=== PATIENT | female | born 1955 | race Caucasian/White ===

== ENCOUNTER 2022-06-20 12:40 | Inpatient (IN) ==
[2022-06-20] MEDS ORDERED: Cefepime 2 GM in Dextrose 2 GM/50 ML BAG IV ONE (12:52)
[2022-06-20] MEDS ORDERED: metroNIDAZOLE IV 500 MG/100ML 500 MG/100 ML BAG IVPB ONE (12:52)
[2022-06-20] MEDS ORDERED: Lactated Ringers 1000 ml BAG 1,000 ML IV ONE ×2 (12:57)
[2022-06-20] MEDS ORDERED: Vancomycin 1,500 MG in NS 0.9% 250 ml 250 ML IVPB ONE (13:30)
[2022-06-20 13:34] LABS: ABS Basophils 0.1 10^3/ul (0-0.2); ABS Eosinophils 0.1 10^3/ul (0-0.6); ABS Lymphocytes 0.2 10^3/ul (1.0-4.8); ABS Monocytes 0.4 10^3/ul (0-0.8); ABS Neutrophils 16.4 10^3/ul (1.5-7.7); Eosinophil % 0.4 %; Hematocrit 33 % (35-47); Hemoglobin 10.5 g/dL (12.0-16.0); Lymphocyte % 1.1 %; Mean Corpuscular HGB Conc 32 g/dL (31-36); Mean Corpuscular Hemoglobin 28 pg (27-31); Mean Corpuscular Volume 86 fL (80-97); Mean Platelet Volume 8.1 fL (7.4-10.4); Platelet Count 178 10^3/uL (150-450); Red Blood Count 3.83 10^6 /uL (3.70-4.87); Red Cell Distribution Width 16 % (10-15); White Blood Count 17.1 10^3/uL (3.5-10.8)
[2022-06-20 13:36] LABS: Venous Bicarbonate HCO3 20.2 mmol/L (24-28)
[2022-06-20 13:43] LABS: Activated Partial Thrombo Time 30.5 seconds (26.0-38.0); INR 1.58 (0.89-1.11)
[2022-06-20 14:23] LABS: Albumin 2.8 g/dL (3.2-5.2); Albumin/Globulin Ratio 0.9 (1-3); C Reactive Protein 285.82 mg/L (<8.01); Potassium 4.3 mmol/L (3.5-5.0); Total Bilirubin 1.6 mg/dL (0.2-1.0); Total Protein 5.8 g/dL (6.4-8.9); eGFR CKD-EPI 23.3 (>60)
[2022-06-20 14:59] LABS: High Sensitivity Troponin 1 Hr 385 pg/mL (<15)
[2022-06-20] MEDS ORDERED: Metoprolol Tartrate 5 mg VIAL 5 ml VIAL (1 mg/ml) IV ONE ×4 (17:53→21:28)
[2022-06-20] MEDS ORDERED: Dextrose 50% Syringe 50 ml 25 GM/50 ML SYRINGE IV PUSH PRN (17:54)
[2022-06-20] MEDS ORDERED: Metoprolol Tartrate 5 mg VIAL 5 ml VIAL (1 mg/ml) IV PRN (17:56)
[2022-06-20] MEDS ORDERED: Cefepime ADVAN 1 GM in NS 0.9% 50 ML 50 ML IVPB SCH (18:00)
[2022-06-20] MEDS ORDERED: Vancomycin per Pharmacy 1 EA NOTE FOLLOW UP SCH (18:00)
[2022-06-20] MEDS ORDERED: Magnesium Sulfate 2 gm BAG 2 GM/50 ML BAG IVPB ONE (18:13)
[2022-06-20 18:19] LABS: Magnesium 1.4 mg/dL (1.9-2.7)
[2022-06-20] MEDS: Lactated Ringers 1000 ml BAG 1,000 ML IV SCH ×2 (18:30→19:32)
[2022-06-20] MEDS ORDERED: Lactated Ringers 1000 ml BAG 1,000 ML IV SCH (19:00)
[2022-06-20] MEDS ORDERED: Magnesium Sulfate IV 1GM/100ML 1 GM/100 ML BAG IV ONE (19:44)
[2022-06-20] MEDS ORDERED: Cefepime 1 GM in Dextrose 1 GM/50 ML BAG IV SCH (20:00)
[2022-06-20 20:09] LABS: High Sensitivity Troponin 3 Hr 559 pg/mL (<15)
[2022-06-20] MEDS ORDERED: metroNIDAZOLE IV 500 MG/100ML 500 MG/100 ML BAG IVPB SCH (20:30)
[2022-06-20 20:31] LABS: Urine Appearance Cloudy; Urine Bilirubin Negative (Negative); Urine Blood 3+ (Negative); Urine Color Amber; Urine Glucose 2+(150 mg/dL) (Negative); Urine Ketones Negative (Negative); Urine Nitrite Negative (Negative); Urine Protein 2+(100 mg/dL) (Negative); Urine Specific Gravity 1.018 (1.002-1.030); Urine Urobilinogen Negative (Negative)
[2022-06-20 20:41] LABS: Urine Bacteria 1+ (Absent); Urine Red Blood Cell 1+(3-5/hpf) (Absent); Urine Squamous Epithelial Cell Present (Absent); Urine White Blood Cell 1+(6-10/hpf) (Absent)
[2022-06-20] MEDS: Heparin DRIP 25,000 UNITS BAG 25,000 UNITS/500 ML BAG IV SCH (20:50)
[2022-06-20 21:00] LABS: ABS Lymphocytes 0.2 10^3/ul (1.0-4.8); ABS Monocytes 0.5 10^3/ul (0-0.8); ABS Neutrophils 12.8 10^3/ul (1.5-7.7); Eosinophil % 0.2 %; Hematocrit 32 % (35-47); Hemoglobin 10.2 g/dL (12.0-16.0); Lymphocyte % 1.4 %; Mean Corpuscular HGB Conc 32 g/dL (31-36); Mean Corpuscular Hemoglobin 28 pg (27-31); Mean Corpuscular Volume 86 fL (80-97); Mean Platelet Volume 7.8 fL (7.4-10.4); Platelet Count 150 10^3/uL (150-450); Red Blood Count 3.68 10^6 /uL (3.70-4.87); Red Cell Distribution Width 16 % (10-15); White Blood Count 13.6 10^3/uL (3.5-10.8)
[2022-06-20] MEDS ORDERED: Insulin GLARGINE 100 un/ml 10 ml VIAL SUBCUT SCH (21:00)
[2022-06-20] MEDS ORDERED: Heparin 5000 UNITS/ML 1 mL VIAL IV SCH (21:00)
[2022-06-20 21:56] LABS: Osmolality Serum 303 mOsm/kg (275-295)
[2022-06-20 21:56] LABS: eGFR CKD-EPI 26.2 (>60)
[2022-06-20 21:57] LABS: Urine Osmo 479 mOsm/kg (150-1150)
[2022-06-20 22:11] LABS: Urine Potassium Concentration 44.1 mmol/L
[2022-06-20] MEDS ORDERED: Digoxin IV 0.5 MG/2 ML AMP (0.25 MG/ML) IV SLOW PU ONE (22:14)
[2022-06-20 23:01] LABS: Glucose Confirmatory 442 mg/dL (70-100)
[2022-06-21] MEDS: Lactated Ringers 1000 ml BAG 1,000 ML IV SCH ×2 (01:39→13:40)
[2022-06-21] MEDS: Cefepime 1 GM in Dextrose 1 GM/50 ML BAG IV SCH ×2 (05:59→18:05)
[2022-06-21] MEDS: metroNIDAZOLE IV 500 MG/100ML 500 MG/100 ML BAG IVPB SCH ×2 (06:45→18:40)
[2022-06-21 08:14] LABS: Hematocrit 31 % (35-47); Mean Corpuscular HGB Conc 32 g/dL (31-36); Mean Corpuscular Hemoglobin 27 pg (27-31); Mean Corpuscular Volume 85 fL (80-97); Platelet Count 139 10^3/uL (150-450); Red Blood Count 3.64 10^6 /uL (3.70-4.87); Red Cell Distribution Width 15 % (10-15); White Blood Count 13.3 10^3/uL (3.5-10.8)
[2022-06-21 08:51] LABS: Anion Gap 13 mmol/L (2-11); CO2 Carbon Dioxide 16 mmol/L (22-32); Calcium 7.5 mg/dL (8.6-10.3); Chloride 97 mmol/L (101-111); Potassium 4.3 mmol/L (3.5-5.0); Sodium 126 mmol/L (135-145)
[2022-06-21 08:57] LABS: Blood Urea Nitrogen 54 mg/dL (6-24); Glucose 294 mg/dL (70-100); eGFR CKD-EPI 22.7 (>60)
[2022-06-21 08:58] LABS: ABS Eosinophils 0.2 10^3/ul (0-0.6); ABS Lymphocytes 0.6 10^3/ul (1.0-4.8); ABS Monocytes 0.6 10^3/ul (0-0.8); ABS Neutrophils 11.9 10^3/ul (1.5-7.7); Eosinophil % 1.6 %; Lymphocyte % 4.2 %
[2022-06-21] MEDS ORDERED: Insulin GLARGINE 100 un/ml 10 ml VIAL SUBCUT ONE (09:15)
[2022-06-21] MEDS: Vancomycin 1000 MG in NS 0.9% 250 ML IVPB SCH (13:39)
[2022-06-21] MEDS: Heparin DRIP 25,000 UNITS BAG 25,000 UNITS/500 ML BAG IV SCH (16:10)
[2022-06-21] MEDS ORDERED: Insulin GLARGINE 100 un/ml 10 ml VIAL SUBCUT SCH (21:00)
[2022-06-22] MEDS: Lactated Ringers 1000 ml BAG 1,000 ML IV SCH ×2 (00:39→20:56)
[2022-06-22 03:46] LABS: Hematocrit 27 % (35-47); Hemoglobin 8.4 g/dL (12.0-16.0); Mean Corpuscular HGB Conc 31 g/dL (31-36); Mean Corpuscular Hemoglobin 27 pg (27-31); Mean Corpuscular Volume 87 fL (80-97); Mean Platelet Volume 8.3 fL (7.4-10.4); Platelet Count 121 10^3/uL (150-450); Red Blood Count 3.14 10^6 /uL (3.70-4.87); Red Cell Distribution Width 16 % (10-15)
[2022-06-22 04:06] LABS: ABS Eosinophils 0.1 10^3/ul (0-0.6); ABS Lymphocytes 0.6 10^3/ul (1.0-4.8); ABS Neutrophils 10.3 10^3/ul (1.5-7.7); Anisocytosis 1+; Burr Cells 1+; Eosinophil % 0.4 %; Lymphocyte % 4.8 %
[2022-06-22 04:40] LABS: Calcium 6.7 mg/dL (8.6-10.3); Magnesium 1.4 mg/dL (1.9-2.7); Potassium 3.9 mmol/L (3.5-5.0); eGFR CKD-EPI 30.7 (>60)
[2022-06-22] MEDS: Cefepime 1 GM in Dextrose 1 GM/50 ML BAG IV SCH (06:18)
[2022-06-22] MEDS: metroNIDAZOLE IV 500 MG/100ML 500 MG/100 ML BAG IVPB SCH (06:58)
[2022-06-22] MEDS ORDERED: Magnesium Sulfate 2 gm BAG 2 GM/50 ML BAG IVPB ONE (07:20)
[2022-06-22] MEDS: Heparin DRIP 25,000 UNITS BAG 25,000 UNITS/500 ML BAG IV SCH (07:40)
[2022-06-22] MEDS: Nystatin TOP POWDER 15 GM BTL TOPICAL SCH ×2 (08:53→21:13)
[2022-06-22 10:57] LABS: PCO2 Arterial 35 mmHg (35-45); PO2 Arterial 90 mmHg (80-100)
[2022-06-22] MEDS: Vancomycin 1000 MG in NS 0.9% 250 ML IVPB SCH (14:12)
[2022-06-22] MEDS ORDERED: Dextrose 50% Syringe 50 ml 25 GM/50 ML SYRINGE IV PUSH PRN (17:47)
[2022-06-22] MEDS: cefTRIAXone 2 gm/50 mL D5W 2 GM/50 ML BAG IV SCH (19:54)
[2022-06-22] MEDS: Insulin GLARGINE 100 un/ml 10 ml VIAL SUBCUT SCH (20:55)
[2022-06-23 06:00] LABS: Hematocrit 30 % (35-47); Mean Corpuscular HGB Conc 34 g/dL (31-36); Mean Corpuscular Hemoglobin 29 pg (27-31); Mean Corpuscular Volume 85 fL (80-97); Platelet Count 131 10^3/uL (150-450); Red Blood Count 3.48 10^6 /uL (3.70-4.87); Red Cell Distribution Width 16 % (10-15); White Blood Count 10.1 10^3/uL (3.5-10.8)
[2022-06-23 06:35] LABS: Anisocytosis 1+; Polychromasia 1+
[2022-06-23 06:36] LABS: ABS Eosinophils 0.1 10^3/ul (0-0.6); ABS Lymphocytes 0.8 10^3/ul (1.0-4.8); ABS Monocytes 1.3 10^3/ul (0-0.8); ABS Neutrophils 7.9 10^3/ul (1.5-7.7); Lymphocyte % 7.5 %
[2022-06-23 06:49] LABS: Calcium 7.5 mg/dL (8.6-10.3); Magnesium 2.1 mg/dL (1.9-2.7); Phosphorus 3.8 mg/dL (2.5-5.0); Potassium 3.8 mmol/L (3.5-5.0); eGFR CKD-EPI 26.6 (>60)
[2022-06-23] MEDS ORDERED: Perflutren Lipid Microsphere 3 ML VIAL ONE (08:42)
[2022-06-23] MEDS: Nystatin TOP POWDER 15 GM BTL TOPICAL SCH ×2 (09:12→22:21)
[2022-06-23] MEDS ORDERED: Vancomycin Trough Check NOTE FOLLOW UP ONE (11:30)
[2022-06-23] MEDS ORDERED: COVID VACC, MONOVAL PFIZER-TRIS 30 MCG/0.3 ML SYR IM ONE (12:00)
[2022-06-23] MEDS: cefTRIAXone 2 gm/50 mL D5W 2 GM/50 ML BAG IV SCH (17:44)
[2022-06-23] MEDS: Insulin GLARGINE 100 un/ml 10 ml VIAL SUBCUT SCH (21:59)
[2022-06-24 06:35] LABS: Hematocrit 31 % (35-47); Mean Corpuscular HGB Conc 32 g/dL (31-36); Mean Corpuscular Hemoglobin 28 pg (27-31); Mean Corpuscular Volume 86 fL (80-97); Mean Platelet Volume 8.7 fL (7.4-10.4); Platelet Count 166 10^3/uL (150-450); Red Blood Count 3.64 10^6 /uL (3.70-4.87); Red Cell Distribution Width 16 % (10-15); White Blood Count 11.5 10^3/uL (3.5-10.8)
[2022-06-24 06:51] LABS: Calcium 7.6 mg/dL (8.6-10.3); Phosphorus 3.5 mg/dL (2.5-5.0); Potassium 4.2 mmol/L (3.5-5.0); eGFR CKD-EPI 30.7 (>60)
[2022-06-24 07:03] LABS: ABS Eosinophils 0.2 10^3/ul (0-0.6); ABS Monocytes 1.5 10^3/ul (0-0.8); ABS Neutrophils 8.8 10^3/ul (1.5-7.7); Eosinophil % 1.5 %; Lymphocyte % 8.9 %
[2022-06-24] MEDS ORDERED: CMCS: SitaGLIPtin 100 mg TAB (NF) PO SCH (09:00)
[2022-06-24] MEDS: Nystatin TOP POWDER 15 GM BTL TOPICAL SCH ×2 (10:52→23:26)
[2022-06-24] MEDS: cefTRIAXone 2 gm/50 mL D5W 2 GM/50 ML BAG IV SCH (18:09)
[2022-06-24] MEDS: Insulin GLARGINE 100 un/ml 10 ml VIAL SUBCUT SCH (22:16)
[2022-06-25 05:15] LABS: Hematocrit 30 % (35-47); Hemoglobin 9.9 g/dL (12.0-16.0); Mean Corpuscular HGB Conc 33 g/dL (31-36); Mean Corpuscular Hemoglobin 28 pg (27-31); Mean Corpuscular Volume 84 fL (80-97); Mean Platelet Volume 8.4 fL (7.4-10.4); Platelet Count 204 10^3/uL (150-450); Red Blood Count 3.62 10^6 /uL (3.70-4.87); Red Cell Distribution Width 16 % (10-15); White Blood Count 14.9 10^3/uL (3.5-10.8)
[2022-06-25 05:16] LABS: ABS Basophils 0.1 10^3/ul (0-0.2); ABS Eosinophils 0.1 10^3/ul (0-0.6); ABS Lymphocytes 1.5 10^3/ul (1.0-4.8); ABS Monocytes 1.5 10^3/ul (0-0.8); ABS Neutrophils 11.7 10^3/ul (1.5-7.7); Eosinophil % 0.6 %; Lymphocyte % 10.2 %
[2022-06-25 05:37] LABS: Calcium 7.6 mg/dL (8.6-10.3); Potassium 4.2 mmol/L (3.5-5.0); eGFR CKD-EPI 40.5 (>60)
[2022-06-25] MEDS: SitaGLIPtin 25mg TAB (NF) 25 MG TAB PO SCH (09:48)
[2022-06-25] MEDS: Nystatin TOP POWDER 15 GM BTL TOPICAL SCH ×2 (09:48→21:08)
[2022-06-25 11:12] LABS: PCO2 Arterial 40 mmHg (35-45); PO2 Arterial 102 mmHg (80-100)
[2022-06-25 11:24] LABS: C Reactive Protein 109.78 mg/L (<8.01)
[2022-06-25] MEDS ORDERED: Ondansetron 4 mg VIAL 2 MG/ML 2 ml VIAL IV PRN (14:30)
[2022-06-25] MEDS ORDERED: Naloxone 0.4 mg VIAL 0.4 mg/ml 1 ml VIAL IV PRN (14:30)
[2022-06-25] MEDS ORDERED: fentaNYL 100 mcg/2 ml 50 MCG/ML VIAL IV PRN (14:30)
[2022-06-25] MEDS: cefTRIAXone 2 gm/50 mL D5W 2 GM/50 ML BAG IV SCH (17:43)
[2022-06-25] MEDS: Insulin GLARGINE 100 un/ml 10 ml VIAL SUBCUT SCH (21:06)
[2022-06-26 04:48] LABS: Hematocrit 31 % (35-47); Hemoglobin 9.6 g/dL (12.0-16.0); Mean Corpuscular HGB Conc 32 g/dL (31-36); Mean Corpuscular Hemoglobin 27 pg (27-31); Mean Corpuscular Volume 86 fL (80-97); Mean Platelet Volume 8.5 fL (7.4-10.4); Platelet Count 175 10^3/uL (150-450); Red Blood Count 3.57 10^6 /uL (3.70-4.87); Red Cell Distribution Width 16 % (10-15); White Blood Count 14.8 10^3/uL (3.5-10.8)
[2022-06-26 05:07] LABS: Calcium 7.5 mg/dL (8.6-10.3); Potassium 4.6 mmol/L (3.5-5.0); eGFR CKD-EPI 52.2 (>60)
[2022-06-26] MEDS ORDERED: Buffered Lidocaine 1% SYRIN 1 ml INTRADERM ONE (06:00)
[2022-06-26] MEDS ORDERED: Lactated Ringers 1000 ml BAG 1,000 ML IV SCH (06:00)
[2022-06-26] MEDS: Nystatin TOP POWDER 15 GM BTL TOPICAL SCH (08:52)
[2022-06-26] MEDS: SitaGLIPtin 25mg TAB (NF) 25 MG TAB PO SCH (08:53)
[2022-06-26 09:56] LABS: RBC Morphology Normal (Normal)
[2022-06-26] MEDS ORDERED: fentaNYL 100 mcg/2 ml 50 MCG/ML VIAL ONE (10:47)
[2022-06-26] MEDS ORDERED: Midazolam 5 mg/5 ml VIAL 1 mg/ml 5 ml VIAL (5 mg) ONE (10:47)
[2022-06-26] MEDS ORDERED: Propofol 10 MG/ML 20 ML BTL ONE (10:48)
[2022-06-26] MEDS ORDERED: Phenylephrine 40 mcg/mL 10mL (400mcg) SYRINGE ONE (10:53)
[2022-06-26] MEDS ORDERED: Dexmedetomidine 200 mcg/2 ml 2 ml VIAL (200 mcg) ONE (11:02)
[2022-06-26] MEDS ORDERED: Ketamine HCL 50 mg/ml 10 ml VIAL (500 MG) ONE (11:03)
[2022-06-26] MEDS: cefTRIAXone 2 gm/50 mL D5W 2 GM/50 ML BAG IV SCH (17:49)
[2022-06-26] MEDS: Insulin GLARGINE 100 un/ml 10 ml VIAL SUBCUT SCH (21:15)
[2022-06-27] MEDS: Nystatin TOP POWDER 15 GM BTL TOPICAL SCH ×3 (00:11→21:32)
[2022-06-27 05:38] LABS: Hematocrit 28 % (35-47); Hemoglobin 9.2 g/dL (12.0-16.0); Mean Corpuscular HGB Conc 33 g/dL (31-36); Mean Corpuscular Hemoglobin 28 pg (27-31); Mean Corpuscular Volume 85 fL (80-97); Mean Platelet Volume 7.6 fL (7.4-10.4); Platelet Count 234 10^3/uL (150-450); Red Blood Count 3.33 10^6 /uL (3.70-4.87); Red Cell Distribution Width 15 % (10-15); White Blood Count 11.4 10^3/uL (3.5-10.8)
[2022-06-27 05:45] LABS: ABS Eosinophils 0.2 10^3/ul (0-0.6); ABS Lymphocytes 1.2 10^3/ul (1.0-4.8); Eosinophil % 1.8 %; Lymphocyte % 10.4 %
[2022-06-27 06:14] LABS: Calcium 7.4 mg/dL (8.6-10.3); Potassium 4.6 mmol/L (3.5-5.0)
[2022-06-27 06:19] LABS: eGFR CKD-EPI 63.3 (>60)
[2022-06-27] MEDS: SitaGLIPtin 25mg TAB (NF) 25 MG TAB PO SCH (09:34)
[2022-06-27] MEDS: cefTRIAXone 2 gm/50 mL D5W 2 GM/50 ML BAG IV SCH (17:21)
[2022-06-27] MEDS: Insulin GLARGINE 100 un/ml 10 ml VIAL SUBCUT SCH (21:28)
[2022-06-28 07:52] LABS: ABS Eosinophils 0.2 10^3/ul (0-0.6); ABS Lymphocytes 1.1 10^3/ul (1.0-4.8); ABS Monocytes 0.9 10^3/ul (0-0.8); ABS Neutrophils 7.9 10^3/ul (1.5-7.7); Eosinophil % 1.9 %; Hematocrit 29 % (35-47); Hemoglobin 9.3 g/dL (12.0-16.0); Lymphocyte % 10.7 %; Mean Corpuscular HGB Conc 33 g/dL (31-36); Mean Corpuscular Hemoglobin 28 pg (27-31); Mean Corpuscular Volume 85 fL (80-97); Mean Platelet Volume 7.7 fL (7.4-10.4); Platelet Count 221 10^3/uL (150-450); Red Blood Count 3.38 10^6 /uL (3.70-4.87); Red Cell Distribution Width 15 % (10-15); White Blood Count 10.1 10^3/uL (3.5-10.8)
[2022-06-28 08:09] LABS: Calcium 7.6 mg/dL (8.6-10.3); Potassium 4.2 mmol/L (3.5-5.0); eGFR CKD-EPI 68.2 (>60)
[2022-06-28] MEDS: CMC:SitaGLIPtin 25mg TAB (NF) 25 MG TAB PO SCH (09:18)
[2022-06-28] MEDS: Nystatin TOP POWDER 15 GM BTL TOPICAL SCH ×2 (09:22→22:45)
[2022-06-28 16:06] LABS: Hematocrit 30 % (35-47); Hemoglobin 9.5 g/dL (12.0-16.0)
[2022-06-28] MEDS: cefTRIAXone 2 gm/50 mL D5W 2 GM/50 ML BAG IV SCH (18:11)
[2022-06-28] MEDS: Insulin GLARGINE 100 un/ml 10 ml VIAL SUBCUT SCH (20:51)
[2022-06-29 07:12] LABS: ABS Eosinophils 0.2 10^3/ul (0-0.6); ABS Lymphocytes 1.1 10^3/ul (1.0-4.8); ABS Monocytes 0.9 10^3/ul (0-0.8); ABS Neutrophils 7.8 10^3/ul (1.5-7.7); Eosinophil % 1.5 %; Hematocrit 29 % (35-47); Hemoglobin 9.7 g/dL (12.0-16.0); Lymphocyte % 10.9 %; Mean Corpuscular HGB Conc 33 g/dL (31-36); Mean Corpuscular Hemoglobin 28 pg (27-31); Mean Corpuscular Volume 85 fL (80-97); Mean Platelet Volume 7.6 fL (7.4-10.4); Nucleated Red Blood Cells % 0.1; Platelet Count 235 10^3/uL (150-450); Red Blood Count 3.44 10^6 /uL (3.70-4.87); Red Cell Distribution Width 15 % (10-15)
[2022-06-29 07:25] LABS: Calcium 7.5 mg/dL (8.6-10.3); Potassium 3.9 mmol/L (3.5-5.0)
[2022-06-29] MEDS: CMC:SitaGLIPtin 25mg TAB (NF) 25 MG TAB PO SCH (08:45)
[2022-06-29] MEDS: Nystatin TOP POWDER 15 GM BTL TOPICAL SCH (08:49)
[2022-06-29 12:36] LABS: Rapid COVID-19 Molecular Undetected (Undetected)
[2022-06-29 16:10] VITALS: BP 138/58
== END 2022-06-29 17:08 | DRG 871 ==
LOC: ED 12:40 → EDHOLD 17:09 → SUATTDRO 17:09 → EDHOLD 06-21 04:33 → MEDTELE 06-21 05:24
PROVIDERS: ADMIT Hospitalist; ATTEND Internal Medicine
PROC: O.CATEE (2022-06-26 11:15)

== ENCOUNTER 2022-12-21 15:47 | Inpatient (IN) ==
[2022-12-21 17:10] LABS: ABS Eosinophils 0.1 10^3/ul (0-0.6); ABS Monocytes 1.1 10^3/ul (0-0.8); Eosinophil % 0.6 %; Hematocrit 27 % (35-47); Hemoglobin 8.1 g/dL (12.0-16.0); Lymphocyte % 7.9 %; Mean Corpuscular Hemoglobin 24 pg (27-31); Mean Corpuscular Hgb Conc 31 g/dL (31-36); Mean Corpuscular Volume 78 fL (80-97); Mean Platelet Volume 7.8 fL (7.4-10.4); Platelet Count 281 10^3/uL (150-450); Red Blood Count 3.39 10^6 /uL (3.70-4.87); Red Cell Distribution Width 18 % (10-15); White Blood Count 12.2 10^3/uL (3.5-10.8)
[2022-12-21] MEDS ORDERED: Lactated Ringers 1000 ml BAG 1,000 ML IV ONE ×2 (17:54→23:38)
[2022-12-21 17:57] LABS: Albumin 2.7 g/dL (3.2-5.2); Calcium 7.5 mg/dL (8.6-10.3); Creatinine, Serum 0.7 mg/dL (0.51-0.95); Potassium 3.7 mmol/L (3.5-5.0); eGFR CKD-EPI 94.7 (>60)
[2022-12-21 17:58] LABS: Albumin/Globulin Ratio 0.6 (1-3); C Reactive Protein 168.18 mg/L (<8.01); Globulin 4.3 g/dL (2-4); Total Bilirubin 0.6 mg/dL (0.2-1.0)
[2022-12-21] MEDS ORDERED: cefTRIAXone 2 gm/50 mL D5W 2 GM/50 ML BAG IV ONE (18:28)
[2022-12-21] MEDS ORDERED: Magnesium Sulf 4 GM/100 ML IV 4,000 MG/100 ML BAG IVPB ONE (20:24)
[2022-12-21 20:49] LABS: Urine Appearance Clear; Urine Bilirubin Negative (Negative); Urine Blood Negative (Negative); Urine Color Yellow; Urine Glucose Negative (Negative); Urine Ketones Negative (Negative); Urine Nitrite Negative (Negative); Urine Protein Negative (Negative); Urine Specific Gravity 1.013 (1.002-1.030); Urine Urobilinogen Negative (Negative)
[2022-12-21] MEDS ORDERED: Dextrose 50% Syringe 50 ml 25 GM/50 ML SYRINGE IV PUSH PRN (21:08)
[2022-12-22 04:24] LABS: Hematocrit 23 % (35-47); Hemoglobin 7.1 g/dL (12.0-16.0); Mean Corpuscular Hemoglobin 24 pg (27-31); Mean Corpuscular Hgb Conc 31 g/dL (31-36); Mean Corpuscular Volume 77 fL (80-97); Mean Platelet Volume 7.4 fL (7.4-10.4); Platelet Count 257 10^3/uL (150-450); Red Blood Count 2.97 10^6 /uL (3.70-4.87); Red Cell Distribution Width 18 % (10-15)
[2022-12-22 04:47] LABS: ABS Basophils 0.1 10^3/ul (0-0.2); ABS Eosinophils 0.1 10^3/ul (0-0.6); ABS Lymphocytes 1.7 10^3/ul (1.0-4.8); ABS Monocytes 1.1 10^3/ul (0-0.8); Eosinophil % 1.1 %; Lymphocyte % 12.7 %
[2022-12-22 04:58] LABS: Calcium 7.5 mg/dL (8.6-10.3); Creatinine, Serum 0.65 mg/dL (0.51-0.95); Magnesium 1.6 mg/dL (1.9-2.7); Potassium 3.3 mmol/L (3.5-5.0); eGFR CKD-EPI 96.4 (>60)
[2022-12-22 05:17] LABS: Ferritin 41.2 ng/mL (11-307)
[2022-12-22] MEDS ORDERED: Magnesium Sulfate 2 gm BAG 2 GM/50 ML BAG IVPB ONE (06:41)
[2022-12-22] MEDS ORDERED: Magnesium Sulfate 2 gm BAG 2 GM/50 ML BAG ONE (06:48)
[2022-12-22] MEDS ORDERED: Potassium Chlor 20 meq TAB.ER PO ONE (07:38)
[2022-12-22] MEDS: Potassium Chlor 20 meq TAB.ER PO SCH (08:34)
[2022-12-22] MEDS: [UNRECOGNIZED DRUG - SUPPLY] TOPICAL SCH (18:02)
[2022-12-22 19:36] LABS: Calcium 7.5 mg/dL (8.6-10.3); Creatinine, Serum 0.64 mg/dL (0.51-0.95); Magnesium 1.6 mg/dL (1.9-2.7); Potassium 3.6 mmol/L (3.5-5.0); eGFR CKD-EPI 96.8 (>60)
[2022-12-22] MEDS ORDERED: Insulin GLARGINE 100 un/ml 10 ml VIAL SUBCUT SCH (21:00)
[2022-12-22] MEDS ORDERED: cefTRIAXone 1 gm/50 mL D5W 1 GM/50 ML BAG IV SCH (21:00)
[2022-12-22 21:44] LABS: Urine Osmo 368 mOsm/kg (150-1150)
[2022-12-23 06:13] LABS: ABS Eosinophils 0.5 10^3/ul (0-0.6); ABS Lymphocytes 1.4 10^3/ul (1.0-4.8); ABS Neutrophils 6.4 10^3/ul (1.5-7.7); Hematocrit 26 % (35-47); Hemoglobin 8.2 g/dL (12.0-16.0); Lymphocyte % 15.3 %; Mean Corpuscular Hemoglobin 25 pg (27-31); Mean Corpuscular Hgb Conc 32 g/dL (31-36); Mean Corpuscular Volume 78 fL (80-97); Mean Platelet Volume 7.7 fL (7.4-10.4); Platelet Count 273 10^3/uL (150-450); Red Blood Count 3.32 10^6 /uL (3.70-4.87); Red Cell Distribution Width 18 % (10-15); White Blood Count 9.3 10^3/uL (3.5-10.8)
[2022-12-23] MEDS: Potassium Chlor 20 meq TAB.ER PO SCH (09:55)
[2022-12-23] MEDS ORDERED: Polyethylene Glycol 3350 17 GM PACKET PO PRN (12:37)
[2022-12-23] MEDS: [UNRECOGNIZED DRUG - SUPPLY] TOPICAL SCH (12:43)
[2022-12-23] MEDS ORDERED: Docusate LIQ 100 MG/10 ML UDC PO SCH (13:00)
[2022-12-23] MEDS ORDERED: Senna TAB 8.6 mg TAB PO SCH (13:00)
[2022-12-23] MEDS ORDERED: Senna/Docusate 8.6/50 mg (NF) TAB PO SCH (13:00)
[2022-12-23 14:27] VITALS: BP 85/60
== END 2022-12-23 19:10 | disposition home or self-care (01) | DRG 871 ==
LOC: EDHOLD 15:47 → ED 15:47 → SUATTDRO 19:32 → OBSVTOIN 19:32 → MED 12-22 15:30
PROVIDERS: ADMIT Internal Medicine; ATTEND Internal Medicine

== ENCOUNTER 2024-07-02 21:07 | Inpatient (IN) ==
[2024-07-02 22:15] LABS: ABS Lymphocytes 0.3 10^3/uL (1.0-4.8); ABS Monocytes 1.2 10^3/uL (0.0-0.9); ABS Neutrophils 15.3 10^3/uL (1.5-7.6); Hematocrit 26.2 % (35-45); Hemoglobin 8.3 g/dL (11.5-14.3); Mean Corpuscular Hemoglobin 26.4 pg (27-33); Mean Corpuscular Hgb Conc 31.7 g/dL (31-36); Mean Corpuscular Volume 83.5 fL (80-97); Mean Platelet Volume 8.5 fL (7.5-11.2); Platelet Count 126 10^3/uL (150-450); Red Blood Count 3.14 10^6/uL (3.63-4.92); Red Cell Distribution Width 17.4 % (12-17); White Blood Count 16.8 10^3/uL (3.8-11.8)
[2024-07-02 22:29] LABS: Activated Partial Thrombo Time 33.3 seconds (26.0-38.0); INR 1.92 (0.85-1.14)
[2024-07-02] MEDS: Piperacillin/Tazobac 3.375 BAG 3.375 GM/100 ML BAG IV ONE (22:41)
[2024-07-02 22:48] LABS: Albumin 3.1 g/dL (3.2-5.2); Albumin/Globulin Ratio 0.6 (1-3); C Reactive Protein 17.23 mg/L (<8.01); Calcium 8.6 mg/dL (8.6-10.3); Creatinine, Serum 1.43 mg/dL (0.51-0.95); Globulin 4.9 g/dL (2-4); Potassium 4.3 mmol/L (3.5-5.0); Total Bilirubin 1.2 mg/dL (0.2-1.0); eGFR CKD-EPI 39.7 (>60)
[2024-07-03] MEDS: Lactated Ringers 1000 ml BAG 1,000 ML IV ONE ×2 (00:01→03:52)
[2024-07-03] MEDS: Vancomycin 1,250 MG in NS 0.9% 250 ml 250 ML IVPB ONE (01:15)
[2024-07-03 01:40] LABS: Erythrocyte Sed Rate 107 mm/Hr (0-29)
[2024-07-03 02:59] LABS: High Sensitivity Troponin 1 Hr 1271 pg/mL (<15)
[2024-07-03] MEDS ORDERED: Vancomycin per Pharmacy 1 EA NOTE FOLLOW UP SCH (03:00)
[2024-07-03] MEDS ORDERED: Cefepime ADVAN 1 GM in NS 0.9% 50 ML 50 ML IVPB SCH (03:00)
[2024-07-03 03:18] LABS: Urine Appearance Turbid; Urine Bilirubin Negative (Negative); Urine Blood 3+ (Negative); Urine Color Yellow; Urine Glucose Negative (Negative); Urine Ketones Trace (Negative); Urine Nitrite Negative (Negative); Urine Protein 1+ (>=30 mg/dL) (Negative); Urine Specific Gravity 1.029 (1.002-1.030); Urine Urobilinogen Negative (Negative); Urine pH 5.5 (5.0-8.0)
[2024-07-03 03:48] LABS: Urine Bacteria Absent /HPF (Absent); Urine Red Blood Cell 3+(>10/hpf) /HPF (0-Trace); Urine Squamous Epithelial Cell Present /HPF (Absent); Urine White Blood Cell Trace(0-5/hpf) /HPF (0-Trace)
[2024-07-03] MEDS: Cefepime 1 GM in Dextrose 1 GM/50 ML BAG IV SCH (03:52)
[2024-07-03] MEDS: Heparin DRIP 25,000 UNITS BAG 25,000 UNITS/250 ML BAG IV SCH (03:57)
[2024-07-03] MEDS ORDERED: Heparin 5000 UNITS/ML 1 mL VIAL IV SCH (04:00)
[2024-07-03] MEDS: metroNIDAZOLE IV 500 MG/100ML 500 MG/100 ML BAG IVPB SCH (04:46)
[2024-07-03 06:58] LABS: ABS Lymphocytes 0.4 10^3/uL (1.0-4.8); ABS Monocytes 0.8 10^3/uL (0.0-0.9); ABS Neutrophils 14.9 10^3/uL (1.5-7.6); Hematocrit 22.5 % (35-45); Hemoglobin 7.2 g/dL (11.5-14.3); Lymphocyte % 2.7 %; Mean Corpuscular Hemoglobin 26.7 pg (27-33); Mean Corpuscular Hgb Conc 32.2 g/dL (31-36); Mean Corpuscular Volume 82.9 fL (80-97); Mean Platelet Volume 8.4 fL (7.5-11.2); Platelet Count 102 10^3/uL (150-450); Red Blood Count 2.71 10^6/uL (3.63-4.92); Red Cell Distribution Width 17.7 % (12-17); White Blood Count 16.2 10^3/uL (3.8-11.8)
[2024-07-03 07:17] LABS: Anion Gap 10 mmol/L (2-16); Blood Urea Nitrogen 21 mg/dL (6-24); CO2 Carbon Dioxide 28 mmol/L (22-32); Calcium 7.8 mg/dL (8.6-10.3); Chloride 97 mmol/L (101-111); Cholesterol 56 mg/dL; Creatinine, Serum 1.53 mg/dL (0.51-0.95); Glucose 193 mg/dL (70-100); LDL Cholesterol 8 mg/dL; Potassium 4.5 mmol/L (3.5-5.0); Sodium 135 mmol/L (135-145); Triglycerides 68 mg/dL; eGFR CKD-EPI 36.6 (>60)
[2024-07-03] MEDS: Sulfur Hexaflouride MICROSPHR 25 MG VIAL IV PRN (08:54)
[2024-07-03 12:07] LABS: Ferritin 13.5 ng/mL (11-307)
[2024-07-03 12:11] LABS: % Iron Saturation 5 % (15-55); .Transferrin 270 mg/dL (203-362); Iron < 20 ug/dL (50-212); Total Iron Binding Capacity 378 mcg/dL (250-450); Unsaturated Iron Binding 358 ug/dL
[2024-07-03] MEDS: cefTRIAXone 2 gm/50 mL D5W 2 GM/50 ML BAG IV SCH (14:52)
[2024-07-03] MEDS ORDERED: cefTRIAXone 2 GM ADDV.VIAL 2 GM in NS 0.9% 100 ml BAG 100 ML IV SCH (15:00)
[2024-07-03] MEDS ORDERED: cefTRIAXone 2 gm/50 mL D5W 2 GM/50 ML BAG IV SCH (15:00)
[2024-07-03 16:03] LABS: Hematocrit 23.1 % (35-45); Hemoglobin 7.3 g/dL (11.5-14.3)
[2024-07-03] MEDS: Ferric Gluconate IV 250 MG in NS 0.9% 250 ml 200 ML IVPB SCH (16:51)
[2024-07-03] MEDS: Vancomycin 1,500 MG in NS 0.9% 250 ml 250 ML IVPB SCH ×2 (22:00→22:51)
[2024-07-03] MEDS: Insulin GLARGINE 100 un/ml 10 ml VIAL SUBCUT SCH (22:05)
[2024-07-04 02:02] LABS: Hematocrit 23.5 % (35-45); Hemoglobin 7.6 g/dL (11.5-14.3)
[2024-07-04 07:18] LABS: Hematocrit 23.3 % (35-45); Hemoglobin 7.5 g/dL (11.5-14.3); Mean Corpuscular Hemoglobin 26.8 pg (27-33); Mean Corpuscular Volume 83.7 fL (80-97); Red Blood Count 2.78 10^6/uL (3.63-4.92); Red Cell Distribution Width 17.6 % (12-17); White Blood Count 11.3 10^3/uL (3.8-11.8)
[2024-07-04 07:54] LABS: Calcium 7.4 mg/dL (8.6-10.3); Creatinine, Serum 1.61 mg/dL (0.51-0.95); Potassium 4.2 mmol/L (3.5-5.0); eGFR CKD-EPI 34.4 (>60)
[2024-07-04 08:30] LABS: ABS Eosinophils 0.1 10^3/uL (0.0-0.5); ABS Lymphocytes 0.5 10^3/uL (1.0-4.8); ABS Monocytes 0.9 10^3/uL (0.0-0.9); ABS Neutrophils 9.8 10^3/uL (1.5-7.6); Eosinophil % 0.5 %; Lymphocyte % 4.8 %; Platelet Count Platelets clumped. 10^3/uL (150-450)
[2024-07-04 10:08] LABS: Folate 13.28 ng/mL (5.90-24.80)
[2024-07-04] MEDS: Influenza Vaccine *TRI* 2024-25* 0.5 ML SYRINGE IM ONE (11:46)
[2024-07-04] MEDS: Furosemide 40 mg/4 ml IV VIAL IV SLOW PU ONE (15:57)
[2024-07-05] MEDS: Nystatin TOP POWDER 15 GM BTL TOPICAL SCH (00:20)
[2024-07-05 06:37] LABS: Calcium 7.5 mg/dL (8.6-10.3); Creatinine, Serum 1.72 mg/dL (0.51-0.95); Potassium 3.7 mmol/L (3.5-5.0); eGFR CKD-EPI 31.8 (>60)
[2024-07-05 07:46] LABS: Platelet Count Platelets clumped. 10^3/uL (150-450)
[2024-07-05 07:52] LABS: ABS Eosinophils 0.3 10^3/uL (0.0-0.5); ABS Lymphocytes 0.7 10^3/uL (1.0-4.8); ABS Neutrophils 6.6 10^3/uL (1.5-7.6); Eosinophil % 3.7 %; Hematocrit 24.3 % (35-45); Hemoglobin 7.8 g/dL (11.5-14.3); Mean Corpuscular Hemoglobin 26.9 pg (27-33); Mean Corpuscular Hgb Conc 32.3 g/dL (31-36); Mean Corpuscular Volume 83.3 fL (80-97); Red Blood Count 2.91 10^6/uL (3.63-4.92); Red Cell Distribution Width 18.5 % (12-17); White Blood Count 8.7 10^3/uL (3.8-11.8)
[2024-07-05 07:53] LABS: Anisocytosis 1+
[2024-07-05] MEDS ORDERED: Lidocaine 4% TOPICAL 50 ML TOP.SOLN ONE (11:08)
[2024-07-05 11:40] LABS: Magnesium 1.6 mg/dL (1.9-2.7)
[2024-07-05] MEDS ORDERED: Propofol 10 MG/ML 50 ML BTL ONE (12:08)
[2024-07-05] MEDS ORDERED: Propofol 10 MG/ML 20 ML BTL ONE (12:08)
[2024-07-05] MEDS ORDERED: Lidocaine 1% MPF 2 ML VIAL ONE (12:08)
[2024-07-05] MEDS: COVID VAC 24-25 (12+) (Moderna) Syringe 0.5 mL IM ONE ×2 (13:08→16:01)
[2024-07-05] MEDS: Magnesium Sulf 4 GM/100 ML IV 4,000 MG/100 ML BAG IVPB ONE (15:59)
[2024-07-05] MEDS ORDERED: Vancomycin Trough Check NOTE FOLLOW UP ONE (20:30)
[2024-07-05] MEDS: cefTRIAXone 2 gm/50 mL D5W 2 GM/50 ML BAG IV SCH (22:20)
[2024-07-06 05:58] LABS: Hematocrit 27.1 % (35-45); Hemoglobin 8.4 g/dL (11.5-14.3); Mean Corpuscular Hemoglobin 27.1 pg (27-33); Mean Corpuscular Hgb Conc 31.1 g/dL (31-36); Mean Corpuscular Volume 87.1 fL (80-97); Mean Platelet Volume 8.5 fL (7.5-11.2); Platelet Count 149 10^3/uL (150-450); Red Blood Count 3.11 10^6/uL (3.63-4.92); Red Cell Distribution Width 19.1 % (12-17); White Blood Count 9.4 10^3/uL (3.8-11.8)
[2024-07-06 06:15] LABS: Calcium 7.5 mg/dL (8.6-10.3); Creatinine, Serum 1.81 mg/dL (0.51-0.95); Magnesium 2.3 mg/dL (1.9-2.7); Potassium 3.8 mmol/L (3.5-5.0); eGFR CKD-EPI 29.9 (>60)
[2024-07-06 08:30] LABS: ABS Eosinophils 0.6 10^3/uL (0.0-0.5); ABS Lymphocytes 0.8 10^3/uL (1.0-4.8); ABS Monocytes 1.4 10^3/uL (0.0-0.9); ABS Neutrophils 6.6 10^3/uL (1.5-7.6); ABS Nucleated RBC 0.04 10^3/ul; Lymphocyte % 8.5 %; Nucleated Red Blood Cells % 0.4 %/100WBC (0.0-0.8)
[2024-07-06 08:31] LABS: Anisocytosis 2+; Polychromasia 1+
[2024-07-06] MEDS: Lactated Ringers 1000 ml BAG 1,000 ML IV ONE (10:20)
[2024-07-06] MEDS: Fluticasone NASAL SPRAY 50MCG 16 gm SPRAY BTL BOTH NARES SCH (11:44)
[2024-07-06] MEDS: Potassium Chlor 20 meq TAB.ER PO ONE (16:13)
[2024-07-06] MEDS: Insulin GLARGINE 100 un/ml 10 ml VIAL SUBCUT SCH (22:09)
[2024-07-06] MEDS: Albuterol HFA INHALER 8 gm MDI INH PRN (23:39)
[2024-07-07 05:50] LABS: Hematocrit 24.3 % (35-45); Hemoglobin 7.9 g/dL (11.5-14.3); Mean Corpuscular Hemoglobin 27.8 pg (27-33); Mean Corpuscular Hgb Conc 32.4 g/dL (31-36); Mean Corpuscular Volume 85.8 fL (80-97); Red Blood Count 2.83 10^6/uL (3.63-4.92); Red Cell Distribution Width 18.6 % (12-17); White Blood Count 8.5 10^3/uL (3.8-11.8)
[2024-07-07 06:19] LABS: Calcium 7.4 mg/dL (8.6-10.3); Creatinine, Serum 1.78 mg/dL (0.51-0.95); Magnesium 2.2 mg/dL (1.9-2.7); Potassium 3.9 mmol/L (3.5-5.0); eGFR CKD-EPI 30.5 (>60)
[2024-07-07 06:56] LABS: Platelet Count Platelets clumped. 10^3/uL (150-450)
[2024-07-07 07:17] LABS: ABS Eosinophils 0.5 10^3/uL (0.0-0.5); ABS Lymphocytes 0.7 10^3/uL (1.0-4.8); ABS Neutrophils 6.2 10^3/uL (1.5-7.6); ABS Nucleated RBC 0.04 10^3/ul; Anisocytosis 2+; Eosinophil % 6.3 %; Lymphocyte % 8.2 %; Nucleated Red Blood Cells % 0.4 %/100WBC (0.0-0.8); Polychromasia 1+
[2024-07-07] MEDS ORDERED: Regadenoson 0.4 MG/5 ML SYRINGE ONE (07:51)
[2024-07-07] MEDS ORDERED: Albuterol HFA INHALER 8 gm MDI INH ONE (07:51)
[2024-07-07] MEDS ORDERED: Aminophylline 25 MG/ML VIAL ONE (07:51)
[2024-07-07] MEDS: Potassium Chlor 20 meq TAB.ER PO ONE (10:19)
[2024-07-07] MEDS: Budesonide NEB 0.25 MG/2 ML NEB.SOLN INH SCH (12:48)
[2024-07-07 18:26] LABS: Urine Appearance Clear; Urine Bilirubin Negative (Negative); Urine Blood 3+ (Negative); Urine Color Yellow; Urine Creatinine Concentration 107.76 mg/dL (20.00-320.00); Urine Glucose Negative (Negative); Urine Ketones Negative (Negative); Urine Nitrite Negative (Negative); Urine Protein 1+ (>=30 mg/dL) (Negative); Urine Specific Gravity 1.019 (1.002-1.030); Urine Urobilinogen Negative (Negative); Urine pH 5.5 (5.0-8.0)
[2024-07-07 18:42] LABS: Urine Amorphous Crystals Present /HPF (Absent); Urine Bacteria 1+ /HPF (Absent); Urine Red Blood Cell 1+(3-5/hpf) /HPF (0-Trace); Urine Squamous Epithelial Cell Present /HPF (Absent); Urine White Blood Cell 1+(6-10/hpf) /HPF (0-Trace)
[2024-07-07] MEDS: Insulin GLARGINE 100 un/ml 10 ml VIAL SUBCUT SCH (21:03)
[2024-07-08 05:49] LABS: Hematocrit 26.5 % (35-45); Hemoglobin 8.3 g/dL (11.5-14.3); Mean Corpuscular Hgb Conc 31.2 g/dL (31-36); Mean Corpuscular Volume 86.5 fL (80-97); Red Blood Count 3.07 10^6/uL (3.63-4.92); Red Cell Distribution Width 18.1 % (12-17); White Blood Count 8.1 10^3/uL (3.8-11.8)
[2024-07-08 06:05] LABS: Calcium 7.5 mg/dL (8.6-10.3); Creatinine, Serum 1.5 mg/dL (0.51-0.95); Magnesium 1.8 mg/dL (1.9-2.7); eGFR CKD-EPI 37.5 (>60)
[2024-07-08 06:34] LABS: Platelet Count Platelets clumped. 10^3/uL (150-450)
[2024-07-08 06:37] LABS: ABS Eosinophils 0.5 10^3/uL (0.0-0.5); ABS Lymphocytes 0.6 10^3/uL (1.0-4.8); ABS Monocytes 0.8 10^3/uL (0.0-0.9); ABS Neutrophils 6.1 10^3/uL (1.5-7.6); ABS Nucleated RBC 0.01 10^3/ul; Lymphocyte % 7.6 %; Nucleated Red Blood Cells % 0.2 %/100WBC (0.0-0.8)
[2024-07-09 11:22] LABS: ABS Eosinophils 0.4 10^3/uL (0.0-0.5); ABS Lymphocytes 0.6 10^3/uL (1.0-4.8); ABS Monocytes 0.5 10^3/uL (0.0-0.9); ABS Neutrophils 5.6 10^3/uL (1.5-7.6); Eosinophil % 5.7 %; Hemoglobin 8.3 g/dL (11.5-14.3); Lymphocyte % 8.7 %; Mean Corpuscular Hemoglobin 27.4 pg (27-33); Mean Corpuscular Hgb Conc 31.9 g/dL (31-36); Mean Platelet Volume 8.2 fL (7.5-11.2); Platelet Count 135 10^3/uL (150-450); Red Blood Count 3.03 10^6/uL (3.63-4.92); Red Cell Distribution Width 18.3 % (12-17); White Blood Count 7.2 10^3/uL (3.8-11.8)
[2024-07-09 11:55] LABS: Calcium 7.3 mg/dL (8.6-10.3); Creatinine, Serum 1.34 mg/dL (0.51-0.95); eGFR CKD-EPI 42.9 (>60)
[2024-07-09] MEDS: Insulin GLARGINE 100 un/ml 10 ml VIAL SUBCUT SCH (20:27)
[2024-07-10] MEDS: cefTRIAXone 2 gm/50 mL D5W 2 GM/50 ML BAG IV SCH (21:12)
[2024-07-11 10:59] LABS: Hematocrit 25.7 % (35-45); Hemoglobin 8.2 g/dL (11.5-14.3); Mean Corpuscular Hemoglobin 27.8 pg (27-33); Mean Corpuscular Hgb Conc 31.9 g/dL (31-36); Mean Platelet Volume 7.8 fL (7.5-11.2); Platelet Count 133 10^3/uL (150-450); Red Blood Count 2.95 10^6/uL (3.63-4.92); Red Cell Distribution Width 19.5 % (12-17); White Blood Count 6.6 10^3/uL (3.8-11.8)
[2024-07-11 11:17] LABS: Calcium 7.4 mg/dL (8.6-10.3); Creatinine, Serum 1.22 mg/dL (0.51-0.95); Potassium 4.3 mmol/L (3.5-5.0)
[2024-07-12] MEDS: Cyanocobalamin INJ 1,000 MCG/ML VIAL 1 ML VIAL IM ONE (16:42)
[2024-07-13 08:49] LABS: Anion Gap 10 mmol/L (2-16); Blood Urea Nitrogen 25 mg/dL (6-24); CO2 Carbon Dioxide 23 mmol/L (22-32); Calcium 7.7 mg/dL (8.6-10.3); Chloride 102 mmol/L (101-111); Creatinine, Serum 1.27 mg/dL (0.51-0.95); Glucose 110 mg/dL (70-100); Sodium 135 mmol/L (135-145); eGFR CKD-EPI 45.8 (>60)
[2024-07-13] MEDS: Furosemide 40 mg/4 ml IV VIAL IV ONE (18:08)
[2024-07-13] MEDS: Nystatin TOP POWDER 15 GM BTL TOPICAL SCH (22:50)
[2024-07-14 07:13] LABS: Calcium 7.9 mg/dL (8.6-10.3); Creatinine, Serum 1.4 mg/dL (0.51-0.95); Magnesium 1.4 mg/dL (1.9-2.7); Potassium 3.9 mmol/L (3.5-5.0); eGFR CKD-EPI 40.7 (>60)
[2024-07-14] MEDS: Magnesium Sulfate 2 gm BAG 2 GM/50 ML BAG IVPB ONE (08:09)
[2024-07-14] MEDS: Magnesium Sulfate IV 1GM/100ML 1 GM/100 ML BAG IV ONE (10:10)
[2024-07-15 05:47] LABS: ABS Eosinophils 0.3 10^3/uL (0.0-0.5); ABS Lymphocytes 0.6 10^3/uL (1.0-4.8); ABS Monocytes 0.5 10^3/uL (0.0-0.9); ABS Neutrophils 4.2 10^3/uL (1.5-7.6); Eosinophil % 5.6 %; Hematocrit 24.1 % (35-45); Hemoglobin 7.9 g/dL (11.5-14.3); Mean Corpuscular Hgb Conc 32.6 g/dL (31-36); Mean Platelet Volume 8.2 fL (7.5-11.2); Nucleated Red Blood Cells % 0.1 %/100WBC (0.0-0.8); Platelet Count 105 10^3/uL (150-450); Red Blood Count 2.81 10^6/uL (3.63-4.92); Red Cell Distribution Width 21.5 % (12-17); White Blood Count 5.7 10^3/uL (3.8-11.8)
[2024-07-15 06:14] LABS: Calcium 7.9 mg/dL (8.6-10.3); Creatinine, Serum 1.38 mg/dL (0.51-0.95); Potassium 4.1 mmol/L (3.5-5.0); eGFR CKD-EPI 41.4 (>60)
[2024-07-16] MEDS ORDERED: diPHENhydraMINE CREAM 2%(NF) 28 gm TUBE TOPICAL PRN (17:13)
[2024-07-16] MEDS: LoraTADine 10 mg TAB (NF) PO ONE (21:04)
[2024-07-17 06:43] LABS: Hematocrit 23.7 % (35-45); Hemoglobin 7.6 g/dL (11.5-14.3); Mean Corpuscular Hemoglobin 27.7 pg (27-33); Mean Corpuscular Hgb Conc 32.2 g/dL (31-36); Mean Corpuscular Volume 86.1 fL (80-97); Red Blood Count 2.75 10^6/uL (3.63-4.92); Red Cell Distribution Width 22.4 % (12-17)
[2024-07-17 07:28] LABS: ABS Basophils 0.1 10^3/uL (0.0-0.1); ABS Eosinophils 0.3 10^3/uL (0.0-0.5); ABS Lymphocytes 0.6 10^3/uL (1.0-4.8); ABS Monocytes 0.5 10^3/uL (0.0-0.9); ABS Neutrophils 3.4 10^3/uL (1.5-7.6); Eosinophil % 6.2 %; Lymphocyte % 12.5 %; Nucleated Red Blood Cells % 0.1 %/100WBC (0.0-0.8); Platelet Count Platelets clumped. 10^3/uL (150-450)
[2024-07-17 08:06] LABS: Albumin 2.4 g/dL (3.2-5.2); Albumin/Globulin Ratio 0.5 (1-3); Creatinine, Serum 1.38 mg/dL (0.51-0.95); Globulin 4.5 g/dL (2-4); Potassium 4.4 mmol/L (3.5-5.0); Total Bilirubin 0.6 mg/dL (0.2-1.0); Total Protein 6.9 g/dL (6.4-8.9); eGFR CKD-EPI 41.4 (>60)
[2024-07-20 21:20] VITALS: BP 136/57
== END 2024-07-20 21:30 | disposition home health service (06) | DRG 871 ==
LOC: EDHOLD 21:07 → ED 21:07 → SUATTDRO 07-03 01:58 → OBSVTOIN 07-03 01:58 → MEDTELE 07-03 17:15
PROVIDERS: ADMIT Student in an Organized Health Care Education/Training Program; ATTEND Internal Medicine
PROC: O.CATEE (2024-07-05 11:00)

== ENCOUNTER 2024-08-23 17:01 | Inpatient (IN) ==
[2024-08-23 18:17] LABS: Hematocrit 15.6 % (35-45); Hemoglobin 5.1 g/dL (11.5-14.3); Mean Corpuscular Hemoglobin 31.1 pg (27-33); Mean Corpuscular Hgb Conc 32.6 g/dL (31-36); Mean Corpuscular Volume 95.5 fL (80-97); Mean Platelet Volume 9.3 fL (7.5-11.2); Platelet Count 134 10^3/uL (150-450); Red Blood Count 1.63 10^6/uL (3.63-4.92); White Blood Count 3.7 10^3/uL (3.8-11.8)
[2024-08-23 18:31] LABS: .Transferrin 264 mg/dL (203-362); ALT 14 U/L (7-52); Albumin 2.9 g/dL (3.2-5.2); Albumin/Globulin Ratio 0.8 (1-3); Alkaline Phosphatase 180 U/L (35-149); Anion Gap 7 mmol/L (2-16); Blood Urea Nitrogen 39 mg/dL (6-24); CO2 Carbon Dioxide 27 mmol/L (22-32); Calcium 7.9 mg/dL (8.6-10.3); Chloride 102 mmol/L (101-111); Creatinine, Serum 2.11 mg/dL (0.51-0.95); Globulin 3.7 g/dL (2-4); Glucose 226 mg/dL (70-100); High Sens Troponin Baseline 15 pg/mL (<15); Magnesium 1.8 mg/dL (1.9-2.7); Sodium 136 mmol/L (135-145); Total Bilirubin 0.8 mg/dL (0.2-1.0); Total Iron Binding Capacity 370 mcg/dL (250-450); Total Protein 6.6 g/dL (6.4-8.9); eGFR CKD-EPI 24.9 (>60)
[2024-08-23 18:46] LABS: TSH Ultra Thyroid Stim Horm 4.38 mcIU/mL (0.34-5.60)
[2024-08-23 19:41] LABS: ABS Eosinophils 0.2 10^3/uL (0.0-0.5); ABS Lymphocytes 0.5 10^3/uL (1.0-4.8); ABS Monocytes 0.3 10^3/uL (0.0-0.9); ABS Neutrophils 2.7 10^3/uL (1.5-7.6); ABS Nucleated RBC 0.01 10^3/ul; Eosinophil % 4.5 %; Lymphocyte % 14.1 %; Nucleated Red Blood Cells % 0.1 %/100WBC (0.0-0.8)
[2024-08-23 20:25] LABS: % Iron Saturation 7 % (15-55); .Transferrin 258 mg/dL (203-362); Iron 26 ug/dL (50-212); Total Iron Binding Capacity 361 mcg/dL (250-450); Unsaturated Iron Binding 335 ug/dL
[2024-08-23 21:03] LABS: Potassium Redraw 3.8 mmol/L (3.5-5.0)
[2024-08-23 21:08] LABS: GGTP 58 U/L (9-64.0)
[2024-08-23 21:32] LABS: Urine Appearance Clear; Urine Bilirubin Negative (Negative); Urine Blood 2+ (Negative); Urine Color Yellow; Urine Glucose Negative (Negative); Urine Ketones Negative (Negative); Urine Nitrite Negative (Negative); Urine Protein Negative (Negative); Urine Specific Gravity 1.014 (1.002-1.030); Urine Urobilinogen Negative (Negative); Urine pH 5.5 (5.0-8.0)
[2024-08-23] MEDS ORDERED: Dextrose 50% Syringe 50 ml 25 GM/50 ML SYRINGE IV PUSH PRN (21:32)
[2024-08-23 21:42] LABS: Urine Bacteria 1+ /HPF (Absent); Urine Red Blood Cell 1+(3-5/hpf) /HPF (0-Trace); Urine Squamous Epithelial Cell Present /HPF (Absent); Urine White Blood Cell 1+(6-10/hpf) /HPF (0-Trace)
[2024-08-23] MEDS: Magnesium Sulfate IV 1GM/100ML 1 GM/100 ML BAG IV ONE (22:01)
[2024-08-23] MEDS: Pantoprazole VIAL 40 MG VIAL IV SCH (22:01)
[2024-08-23 22:20] LABS: Ferritin 31.6 ng/mL (11-307)
[2024-08-23 22:24] LABS: Folate 19.04 ng/mL (5.90-24.80)
[2024-08-23 22:25] LABS: Vitamin B12 > 1450 pg/mL (180-914)
[2024-08-23 22:49] LABS: C Reactive Protein 2.04 mg/L (<8.01)
[2024-08-24 11:39] LABS: ABS Eosinophils 0.2 10^3/uL (0.0-0.5); ABS Lymphocytes 0.6 10^3/uL (1.0-4.8); ABS Monocytes 0.5 10^3/uL (0.0-0.9); ABS Neutrophils 2.8 10^3/uL (1.5-7.6); Eosinophil % 5.4 %; Hematocrit 21.9 % (35-45); Hemoglobin 7.4 g/dL (11.5-14.3); Lymphocyte % 14.7 %; Mean Corpuscular Hemoglobin 30.9 pg (27-33); Mean Corpuscular Hgb Conc 33.8 g/dL (31-36); Mean Corpuscular Volume 91.3 fL (80-97); Mean Platelet Volume 7.8 fL (7.5-11.2); Nucleated Red Blood Cells % 0.1 %/100WBC (0.0-0.8); Platelet Count 147 10^3/uL (150-450); Red Cell Distribution Width 18.2 % (12-17); White Blood Count 4.2 10^3/uL (3.8-11.8)
[2024-08-24 12:10] LABS: Creatinine, Serum 1.97 mg/dL (0.51-0.95); Potassium 3.7 mmol/L (3.5-5.0)
[2024-08-24] MEDS: Furosemide 20 mg/2 ml IV VIAL IV SLOW PU ONE (17:23)
[2024-08-24 17:47] LABS: Hematocrit 21.4 % (35-45); Hemoglobin 7.3 g/dL (11.5-14.3)
[2024-08-24] MEDS: PEG 3000 GI LAVAGE 1 GALLON PO ONE (22:13)
[2024-08-25 06:24] LABS: ABS Eosinophils 0.2 10^3/uL (0.0-0.5); ABS Lymphocytes 0.7 10^3/uL (1.0-4.8); ABS Monocytes 0.4 10^3/uL (0.0-0.9); ABS Neutrophils 2.3 10^3/uL (1.5-7.6); Eosinophil % 5.7 %; Hematocrit 24.9 % (35-45); Hemoglobin 8.3 g/dL (11.5-14.3); Lymphocyte % 18.7 %; Mean Corpuscular Hemoglobin 30.1 pg (27-33); Mean Corpuscular Hgb Conc 33.3 g/dL (31-36); Mean Corpuscular Volume 90.2 fL (80-97); Mean Platelet Volume 8.1 fL (7.5-11.2); Nucleated Red Blood Cells % 0.1 %/100WBC (0.0-0.8); Platelet Count 122 10^3/uL (150-450); Red Blood Count 2.76 10^6/uL (3.63-4.92); White Blood Count 3.6 10^3/uL (3.8-11.8)
[2024-08-25 06:46] LABS: Albumin/Globulin Ratio 0.8 (1-3); Calcium 8.2 mg/dL (8.6-10.3); Creatinine, Serum 1.87 mg/dL (0.51-0.95); Globulin 3.8 g/dL (2-4); Potassium 3.7 mmol/L (3.5-5.0); Total Bilirubin 2.5 mg/dL (0.2-1.0); Total Protein 6.8 g/dL (6.4-8.9); eGFR CKD-EPI 28.8 (>60)
[2024-08-25] MEDS ORDERED: PEG 3000 GI LAVAGE 1 GALLON PO ONE (07:00)
[2024-08-25] MEDS: PEG 3000 GI LAVAGE 1 GALLON PO ONE (08:08)
[2024-08-25 16:45] LABS: Direct Bilirubin 0.6 mg/dL (0.03-0.18); Indirect Bilirubin 1.1 mg/dL (0.3-1.0); Total Bilirubin 1.7 mg/dL (0.2-1.0)
[2024-08-25 17:31] LABS: Hepatitis C Antibody Negative (Negative)
[2024-08-25] MEDS: Insulin GLARGINE 100 un/ml 10 ml VIAL SUBCUT SCH (22:16)
[2024-08-26 06:18] LABS: ABS Eosinophils 0.2 10^3/uL (0.0-0.5); ABS Lymphocytes 0.5 10^3/uL (1.0-4.8); ABS Monocytes 0.5 10^3/uL (0.0-0.9); ABS Neutrophils 2.8 10^3/uL (1.5-7.6); Eosinophil % 5.2 %; Hematocrit 23.7 % (35-45); Hemoglobin 7.9 g/dL (11.5-14.3); Lymphocyte % 12.8 %; Mean Corpuscular Hemoglobin 30.4 pg (27-33); Mean Corpuscular Hgb Conc 33.3 g/dL (31-36); Mean Corpuscular Volume 91.3 fL (80-97); Platelet Count 121 10^3/uL (150-450); Red Blood Count 2.59 10^6/uL (3.63-4.92); Red Cell Distribution Width 17.8 % (12-17); White Blood Count 4.1 10^3/uL (3.8-11.8)
[2024-08-26 06:54] LABS: Calcium 7.9 mg/dL (8.6-10.3); Creatinine, Serum 2.07 mg/dL (0.51-0.95); Potassium 4.3 mmol/L (3.5-5.0); eGFR CKD-EPI 25.5 (>60)
[2024-08-26] MEDS: Ferric Gluconate IV 250 MG in NS 0.9% 250 ml 200 ML IVPB SCH (10:52)
[2024-08-26 11:16] LABS: Hepatitis B Surface Antigen Nonreactive (Nonreactive)
[2024-08-26 11:25] LABS: HIV 4th Generation Nonreactive (Nonreactive)
[2024-08-26 12:21] LABS: C Reactive Protein 4.89 mg/L (<8.01)
[2024-08-26] MEDS: Furosemide 20 mg/2 ml IV VIAL IV SLOW PU ONE (15:38)
[2024-08-27 06:34] LABS: ABS Eosinophils 0.2 10^3/uL (0.0-0.5); ABS Lymphocytes 0.7 10^3/uL (1.0-4.8); ABS Monocytes 0.5 10^3/uL (0.0-0.9); ABS Neutrophils 2.1 10^3/uL (1.5-7.6); Eosinophil % 6.7 %; Hematocrit 23.4 % (35-45); Hemoglobin 7.6 g/dL (11.5-14.3); Lymphocyte % 19.4 %; Mean Corpuscular Hemoglobin 29.8 pg (27-33); Mean Corpuscular Hgb Conc 32.5 g/dL (31-36); Mean Corpuscular Volume 91.9 fL (80-97); Mean Platelet Volume 8.4 fL (7.5-11.2); Platelet Count 106 10^3/uL (150-450); Red Blood Count 2.55 10^6/uL (3.63-4.92); Red Cell Distribution Width 17.4 % (12-17); White Blood Count 3.7 10^3/uL (3.8-11.8)
[2024-08-27 06:48] LABS: Calcium 7.9 mg/dL (8.6-10.3); Creatinine, Serum 2.1 mg/dL (0.51-0.95); Magnesium 1.8 mg/dL (1.9-2.7); Potassium 3.9 mmol/L (3.5-5.0)
[2024-08-27] MEDS: Magnesium Sulfate 2 gm BAG 2 GM/50 ML BAG IVPB ONE (09:17)
[2024-08-27 10:24] LABS: INR 1.96 (0.85-1.14)
[2024-08-28 06:41] LABS: Calcium 7.8 mg/dL (8.6-10.3); Creatinine, Serum 2.26 mg/dL (0.51-0.95); Magnesium 1.9 mg/dL (1.9-2.7); Potassium 4.2 mmol/L (3.5-5.0); eGFR CKD-EPI 22.9 (>60)
[2024-08-28 07:11] LABS: Hematocrit 23.3 % (35-45); Hemoglobin 7.9 g/dL (11.5-14.3); Mean Corpuscular Hemoglobin 31.2 pg (27-33); Mean Corpuscular Hgb Conc 33.9 g/dL (31-36); Red Blood Count 2.53 10^6/uL (3.63-4.92); Red Cell Distribution Width 18.1 % (12-17); White Blood Count 4.4 10^3/uL (3.8-11.8)
[2024-08-28 08:12] LABS: ABS Eosinophils 0.3 10^3/uL (0.0-0.5); ABS Lymphocytes 0.8 10^3/uL (1.0-4.8); ABS Monocytes 0.6 10^3/uL (0.0-0.9); ABS Neutrophils 2.7 10^3/uL (1.5-7.6); ABS Nucleated RBC 0.01 10^3/ul; Eosinophil % 6.2 %; Lymphocyte % 18.2 %; Nucleated Red Blood Cells % 0.2 %/100WBC (0.0-0.8); Platelet Count Platelets clumped. 10^3/uL (150-450)
[2024-08-28] MEDS: Magnesium Sulfate IV 1GM/100ML 1 GM/100 ML BAG IV ONE (09:04)
[2024-08-29 06:45] LABS: Calcium 8.1 mg/dL (8.6-10.3); Creatinine, Serum 2.15 mg/dL (0.51-0.95); eGFR CKD-EPI 24.3 (>60)
[2024-08-29 06:56] LABS: Hematocrit 24.7 % (35-45); Mean Corpuscular Hemoglobin 30.1 pg (27-33); Mean Corpuscular Hgb Conc 32.3 g/dL (31-36); Mean Corpuscular Volume 93.3 fL (80-97); Red Blood Count 2.65 10^6/uL (3.63-4.92); Red Cell Distribution Width 18.1 % (12-17)
[2024-08-29 07:48] LABS: ABS Eosinophils 0.3 10^3/uL (0.0-0.5); ABS Lymphocytes 0.6 10^3/uL (1.0-4.8); ABS Monocytes 0.6 10^3/uL (0.0-0.9); ABS Neutrophils 2.5 10^3/uL (1.5-7.6); Eosinophil % 7.1 %; Lymphocyte % 15.2 %; Platelet Count Platelets clumped. 10^3/uL (150-450)
[2024-08-29] MEDS: Albuterol HFA INHALER 8 gm MDI INH PRN ×2 (13:16→21:42)
[2024-08-29] MEDS: Albuterol/Ipratropium NEB.SOL (2.5/0.5 MG) 3 ML NEB.SOLN INH SCH (17:05)
[2024-08-30 05:57] LABS: ABS Lymphocytes 0.4 10^3/uL (1.0-4.8); ABS Monocytes 0.3 10^3/uL (0.0-0.9); Eosinophil % 0.1 %; Hematocrit 23.8 % (35-45); Hemoglobin 7.8 g/dL (11.5-14.3); Lymphocyte % 10.6 %; Mean Corpuscular Hemoglobin 30.4 pg (27-33); Mean Corpuscular Hgb Conc 32.7 g/dL (31-36); Mean Corpuscular Volume 93.1 fL (80-97); Mean Platelet Volume 7.7 fL (7.5-11.2); Platelet Count 104 10^3/uL (150-450); Red Blood Count 2.56 10^6/uL (3.63-4.92); Red Cell Distribution Width 18.2 % (12-17); White Blood Count 3.7 10^3/uL (3.8-11.8)
[2024-08-30] MEDS ORDERED: Albuterol/Ipratropium NEB.SOL (2.5/0.5 MG) 3 ML NEB.SOLN INH PRN (07:43)
[2024-08-30 07:45] LABS: Platelet Count, Citrated 99 10^3/ul (150-450)
[2024-08-30 08:33] LABS: Creatinine, Serum 2.14 mg/dL (0.51-0.95); Magnesium 1.9 mg/dL (1.9-2.7); Potassium 4.4 mmol/L (3.5-5.0); eGFR CKD-EPI 24.5 (>60)
[2024-08-30] MEDS: Magnesium Sulfate IV 1GM/100ML 1 GM/100 ML BAG IV ONE (12:17)
[2024-08-30] MEDS: Bumetanide IV 0.25 MG/ML 4 ml VIAL (1 mg) IV SLOW PU ONE (13:28)
[2024-08-31 06:18] LABS: ABS Eosinophils 0.1 10^3/uL (0.0-0.5); ABS Lymphocytes 0.6 10^3/uL (1.0-4.8); ABS Monocytes 0.5 10^3/uL (0.0-0.9); Eosinophil % 1.4 %; Hematocrit 23.6 % (35-45); Hemoglobin 7.9 g/dL (11.5-14.3); Lymphocyte % 12.3 %; Mean Corpuscular Hemoglobin 31.2 pg (27-33); Mean Corpuscular Hgb Conc 33.2 g/dL (31-36); Mean Corpuscular Volume 93.9 fL (80-97); Mean Platelet Volume 8.9 fL (7.5-11.2); Nucleated Red Blood Cells % 0.1 %/100WBC (0.0-0.8); Platelet Count 91 10^3/uL (150-450); Red Blood Count 2.52 10^6/uL (3.63-4.92); Red Cell Distribution Width 18.5 % (12-17); White Blood Count 5.2 10^3/uL (3.8-11.8)
[2024-08-31 06:39] LABS: Calcium 8.1 mg/dL (8.6-10.3); Creatinine, Serum 2.02 mg/dL (0.51-0.95); Magnesium 1.9 mg/dL (1.9-2.7); Potassium 4.4 mmol/L (3.5-5.0); eGFR CKD-EPI 26.2 (>60)
[2024-08-31 06:59] LABS: Ferritin 206.6 ng/mL (11-307)
[2024-08-31] MEDS: Bumetanide IV 0.25 MG/ML 4 ml VIAL (1 mg) IV SLOW PU SCH ×2 (09:34→21:17)
[2024-08-31] MEDS: Magnesium Sulfate IV 1GM/100ML 1 GM/100 ML BAG IV ONE (09:34)
[2024-08-31] MEDS: Nystatin TOP POWDER 15 GM BTL TOPICAL SCH (15:23)
[2024-08-31 16:57] LABS: Urine Appearance Clear; Urine Bilirubin Negative (Negative); Urine Blood 2+ (Negative); Urine Color Light-Yellow; Urine Glucose Negative (Negative); Urine Ketones Negative (Negative); Urine Nitrite Negative (Negative); Urine Protein Negative (Negative); Urine Urobilinogen Negative (Negative)
[2024-08-31 17:12] LABS: Urine Bacteria Absent /HPF (Absent); Urine Red Blood Cell 1+(3-5/hpf) /HPF (0-Trace); Urine Squamous Epithelial Cell Present /HPF (Absent); Urine White Blood Cell Trace(0-5/hpf) /HPF (0-Trace)
[2024-09-01] MEDS: Albuterol/Ipratropium NEB.SOL (2.5/0.5 MG) 3 ML NEB.SOLN INH PRN (01:54)
[2024-09-01 06:06] LABS: PCO2 Arterial 59 mmHg (35-45); PO2 Arterial 112 mmHg (80-100)
[2024-09-01 06:26] LABS: Calcium 7.9 mg/dL (8.6-10.3); Creatinine, Serum 2.32 mg/dL (0.51-0.95); Magnesium 1.8 mg/dL (1.9-2.7); Potassium 4.8 mmol/L (3.5-5.0); eGFR CKD-EPI 22.2 (>60)
[2024-09-01 07:23] LABS: ABS Basophils 0.1 10^3/uL (0.0-0.1); ABS Eosinophils 0.3 10^3/uL (0.0-0.5); ABS Lymphocytes 0.6 10^3/uL (1.0-4.8); ABS Monocytes 0.6 10^3/uL (0.0-0.9); ABS Neutrophils 3.4 10^3/uL (1.5-7.6); Eosinophil % 6.8 %; Hematocrit 22.5 % (35-45); Hemoglobin 7.5 g/dL (11.5-14.3); Mean Corpuscular Hemoglobin 31.3 pg (27-33); Mean Corpuscular Hgb Conc 33.3 g/dL (31-36); Mean Platelet Volume 8.9 fL (7.5-11.2); Nucleated Red Blood Cells % 0.1 %/100WBC (0.0-0.8); Platelet Count 100 10^3/uL (150-450); Red Cell Distribution Width 19.3 % (12-17); White Blood Count 4.9 10^3/uL (3.8-11.8)
[2024-09-01] MEDS: Magnesium Sulfate 2 gm BAG 2 GM/50 ML BAG IVPB ONE (07:25)
[2024-09-01] MEDS: Insulin GLARGINE 100 un/ml 10 ml VIAL SUBCUT SCH (21:56)
[2024-09-01 22:04] LABS: Urine Appearance Turbid; Urine Bacteria Absent /HPF (Absent); Urine Bilirubin Negative (Negative); Urine Glucose Negative (Negative); Urine Ketones Negative (Negative); Urine Nitrite Negative (Negative); Urine Protein 1+ (>=30 mg/dL) (Negative); Urine Red Blood Cell 3+(>10/hpf) /HPF (0-Trace); Urine Specific Gravity 1.012 (1.002-1.030); Urine Urobilinogen Negative (Negative); Urine White Blood Cell 1+(6-10/hpf) /HPF (0-Trace)
[2024-09-01 22:29] LABS: Urine Color Light-Brown
[2024-09-02 06:12] LABS: Calcium 8.1 mg/dL (8.6-10.3); Creatinine, Serum 2.25 mg/dL (0.51-0.95); Potassium 4.2 mmol/L (3.5-5.0)
[2024-09-02 06:22] LABS: Hematocrit 24.6 % (35-45); Hemoglobin 8.3 g/dL (11.5-14.3); Mean Corpuscular Hemoglobin 31.6 pg (27-33); Mean Corpuscular Hgb Conc 33.7 g/dL (31-36); Mean Corpuscular Volume 93.7 fL (80-97); Red Blood Count 2.62 10^6/uL (3.63-4.92); White Blood Count 5.1 10^3/uL (3.8-11.8)
[2024-09-02 08:37] LABS: Platelet Count Platelets clumped. 10^3/uL (150-450)
[2024-09-02 18:28] LABS: Urine Appearance Turbid; Urine Bacteria Absent /HPF (Absent); Urine Bilirubin Negative (Negative); Urine Blood 3+ (Negative); Urine Glucose Negative (Negative); Urine Ketones Negative (Negative); Urine Nitrite Negative (Negative); Urine Protein 1+ (>=30 mg/dL) (Negative); Urine Red Blood Cell 3+(>10/hpf) /HPF (0-Trace); Urine Urobilinogen Negative (Negative); Urine White Blood Cell Absent /HPF (0-Trace); Urine pH 5.5 (5.0-8.0)
[2024-09-02 18:29] LABS: Urine Color Light-Orange
[2024-09-03 06:28] LABS: Hematocrit 25.2 % (35-45); Hemoglobin 8.3 g/dL (11.5-14.3); Mean Corpuscular Hemoglobin 30.9 pg (27-33); Mean Corpuscular Hgb Conc 32.9 g/dL (31-36); Mean Corpuscular Volume 93.8 fL (80-97); Red Blood Count 2.69 10^6/uL (3.63-4.92); Red Cell Distribution Width 19.1 % (12-17); White Blood Count 4.4 10^3/uL (3.8-11.8)
[2024-09-03 06:36] LABS: Creatinine, Serum 2.38 mg/dL (0.51-0.95); Magnesium 1.8 mg/dL (1.9-2.7); Phosphorus 4.3 mg/dL (2.5-5.0); Potassium 3.9 mmol/L (3.5-5.0); eGFR CKD-EPI 21.5 (>60)
[2024-09-03 08:19] LABS: Platelet Count Platelets clumped. 10^3/uL (150-450)
[2024-09-03] MEDS: Potassium Chlor 10 meq TAB PO ONE (08:51)
[2024-09-03] MEDS: Magnesium Sulfate 2 gm BAG 2 GM/50 ML BAG IVPB ONE (08:51)
[2024-09-03 15:30] LABS: PCO2 Arterial 57 mmHg (35-45); PO2 Arterial 99 mmHg (80-100)
[2024-09-04 05:48] LABS: Hematocrit 26.5 % (35-45); Hemoglobin 8.9 g/dL (11.5-14.3); Mean Corpuscular Hemoglobin 31.4 pg (27-33); Mean Corpuscular Hgb Conc 33.7 g/dL (31-36); Mean Corpuscular Volume 93.2 fL (80-97); Mean Platelet Volume 8.4 fL (7.5-11.2); Platelet Count 99 10^3/uL (150-450); Red Blood Count 2.85 10^6/uL (3.63-4.92); Red Cell Distribution Width 18.7 % (12-17)
[2024-09-04 06:16] LABS: Platelet Count, Citrated 91 10^3/ul (150-450)
[2024-09-04 06:44] LABS: Calcium 8.5 mg/dL (8.6-10.3); Creatinine, Serum 2.36 mg/dL (0.51-0.95); Magnesium 1.9 mg/dL (1.9-2.7); Potassium 3.8 mmol/L (3.5-5.0); eGFR CKD-EPI 21.8 (>60)
[2024-09-04] MEDS: Potassium Chlor 20 meq TAB.ER PO ONE (08:10)
[2024-09-04] MEDS: Magnesium Sulfate IV 1GM/100ML 1 GM/100 ML BAG IV ONE (08:10)
[2024-09-05 06:34] LABS: Hematocrit 25.3 % (35-45); Hemoglobin 8.5 g/dL (11.5-14.3); Mean Corpuscular Hemoglobin 31.2 pg (27-33); Mean Corpuscular Hgb Conc 33.6 g/dL (31-36); Mean Corpuscular Volume 92.8 fL (80-97); Red Blood Count 2.72 10^6/uL (3.63-4.92); Red Cell Distribution Width 18.8 % (12-17); White Blood Count 3.7 10^3/uL (3.8-11.8)
[2024-09-05 06:37] LABS: Mean Platelet Volume 8.6 fL (7.5-11.2); Platelet Count 89 10^3/uL (150-450)
[2024-09-05 06:53] LABS: Calcium 8.5 mg/dL (8.6-10.3); Creatinine, Serum 1.87 mg/dL (0.51-0.95); Magnesium 1.8 mg/dL (1.9-2.7); Potassium 3.5 mmol/L (3.5-5.0); eGFR CKD-EPI 28.8 (>60)
[2024-09-05] MEDS: Potassium Chlor 20 meq TAB.ER PO ONE (08:09)
[2024-09-05] MEDS: Magnesium Sulfate 2 gm BAG 2 GM/50 ML BAG IVPB ONE (08:13)
[2024-09-06 06:50] LABS: Hematocrit 24.6 % (35-45); Hemoglobin 8.2 g/dL (11.5-14.3); Mean Corpuscular Hgb Conc 33.5 g/dL (31-36); Mean Corpuscular Volume 92.6 fL (80-97); Mean Platelet Volume 8.3 fL (7.5-11.2); Platelet Count 87 10^3/uL (150-450); Red Blood Count 2.66 10^6/uL (3.63-4.92); Red Cell Distribution Width 18.6 % (12-17); White Blood Count 3.4 10^3/uL (3.8-11.8)
[2024-09-06 07:14] LABS: Calcium 8.2 mg/dL (8.6-10.3); Creatinine, Serum 2.22 mg/dL (0.51-0.95); Magnesium 1.8 mg/dL (1.9-2.7); Potassium 3.6 mmol/L (3.5-5.0); eGFR CKD-EPI 23.4 (>60)
[2024-09-06] MEDS: Potassium Chlor 20 meq TAB.ER PO ONE (09:25)
[2024-09-06] MEDS: Magnesium Sulfate 2 gm BAG 2 GM/50 ML BAG IVPB ONE (09:25)
[2024-09-06 10:07] VITALS: BP 115/60
== END 2024-09-06 17:54 | disposition home or self-care (01) | DRG 811 ==
LOC: EDHOLD 17:01 → ED 17:01 → MEDTELE 20:45 → SUATTDRO 08-25 11:03
PROVIDERS: ADMIT Internal Medicine; ATTEND Internal Medicine